=== PATIENT | female | born 1945 | race Caucasian/White ===

== ENCOUNTER 2020-07-08 07:55 | Outpatient (CLI) | payer MEDICARE, OTHER | END 2020-07-08 07:56 | disposition home or self-care (01) | LOC: BICMAMMO 07:55 | PROVIDERS: ATTEND Internal Medicine | DX: Z12.31 Encounter for screening mammogram for malignant neoplasm of breast (principal) | CPT/HCPCS: 77063; 77067 ==

== ENCOUNTER → 2020-12-06 | Day surgery (SDC) | payer MEDICARE, OTHER ==
[2020-12-03 14:30] VITALS: BMI 26.8
[~2020-12-06] MED LIST: Lidocaine 1% PF 5 ML VIAL ONE; PROPOFOL 200 MG/20 ML VIAL ONE
== END ==
LOC: SDC 10:38
PROVIDERS: ATTEND Internal Medicine Cardiovascular Disease
PROC: B246ZZ4 Ultrasonography of Right and Left Heart, Transesophageal (ICD-10-PCS; principal; 2020-12-06)
PROC: 5A2204Z Restoration of Cardiac Rhythm, Single (ICD-10-PCS; 2020-12-06)
DX: I48.3 Typical atrial flutter (principal); Q21.1 Atrial septal defect; I08.1 Rheumatic disorders of both mitral and tricuspid valves; I48.0 Paroxysmal atrial fibrillation; I10 Essential (primary) hypertension; Z79.01 Long term (current) use of anticoagulants; Z79.2 Long term (current) use of antibiotics; Z79.899 Other long term (current) drug therapy; Z91.013 Allergy to seafood
CPT/HCPCS: 92960; 93005; 93010; 93312; J2704

== ENCOUNTER 2020-12-14 15:41 | Outpatient (CLI) | payer MEDICARE, OTHER ==
[2020-12-14 17:00] LABS: Hemoglobin 12.5 g/dL (12.0-15.5); Mean Corpuscular HGB CONC 32.3 g/dL (32.0-36.0); Mean Corpuscular Hemoglobin 29.8 pg (27.0-33.0); Mean Corpuscular Volume 92.4 fl (81.6-98.3); Mean Platelet Volume 9.9 fl (7.4-10.4); Platelet Count 270 10x3/uL (150-450); RBC Distribution Width 13.5 % (11.5-14.5); Red Blood Cell (RBC) Count 4.19 10x6/uL (3.90-5.03); White Blood Cell (WBC) Count 6.2 10x3/uL (3.5-10.5)
[2020-12-14 17:16] LABS: Prothrombin Time 11.2 sec (9.5-12.1)
[2020-12-14 17:32] LABS: Anion Gap 13 mmol/L (10-20); BUN (Urea Nitrogen) 19 mg/dL (9.8-20.1); Calc. Creatinine Clearance 0 mL/min (70-130); Calcium 9.5 mg/dL (7.8-10.44); Carbon Dioxide 25 mmol/L (23-31); Chloride 109 mmol/L (98-107); Glucose 85 mg/dL (83-110); Potassium 4.6 mmol/L (3.5-5.1); Sodium 142 mmol/L (136-145)
[2020-12-15 07:50] LABS: SARS-CoV-2 PCR by NAA Not Detected (NotDetected)
== END 2020-12-14 15:42 | disposition home or self-care (01) ==
LOC: LABBT 15:41
PROVIDERS: ATTEND Internal Medicine Cardiovascular Disease
DX: Z01.812 Encounter for preprocedural laboratory examination (principal); Z20.822 Contact with and (suspected) exposure to COVID-19
CPT/HCPCS: 80048; 85027; 85610; U0003; U0005

== ENCOUNTER 2020-12-17 07:52 | Day surgery (SDC) | payer MEDICARE, OTHER ==
[2020-12-16 13:01] VITALS: BMI 28.5
[2020-12-17] MEDS ORDERED: Clindamycin/D5W 900 mg/50 ml Premix Bag ONE ×2 (10:11→10:20)
[2020-12-17] MEDS ORDERED: Heparin 10,000 UNITS/ 10 ML VIAL ONE (10:15)
[2020-12-17] MEDS ORDERED: SUGAMMADEX SODIUM 200 MG/2 ML VIAL ONE (10:20)
[2020-12-17] MEDS ORDERED: Fentanyl 100 MCG/2 ML VIAL ONE (10:20)
[2020-12-17] MEDS ORDERED: Famotidine/PF 20 mg/2ml Vial ONE (10:20)
[2020-12-17] MEDS ORDERED: Heparin 25,000 units/D5W 0 ML ONE (10:29)
[2020-12-17] MEDS ORDERED: Ondansetron PF 4 MG/2 ML Vial ONE (10:41)
[2020-12-17] MEDS ORDERED: Lidocaine 1% PF 5 ML VIAL ONE (10:41)
[2020-12-17] MEDS ORDERED: PROPOFOL 200 MG/20 ML VIAL ONE (10:41)
[2020-12-17] MEDS ORDERED: ePHEDrine 50 MG/ML VIAL ONE (10:41)
[2020-12-17] MEDS ORDERED: Metoclopramide HCl 10 MG/2 ML VIAL ONE (10:41)
[2020-12-17] MEDS ORDERED: Rocuronium Bromide 10 MG/ML (10ML VIAL) ONE (10:41)
[2020-12-17] MEDS ORDERED: PHENYLEPHRINE-NS 100 MCG/ML 10 ML SYRINGE ONE (10:41)
== END 2020-12-17 16:54 | disposition home or self-care (01) ==
LOC: SDC 07:52
PROVIDERS: ATTEND Internal Medicine Cardiovascular Disease
PROC: 02583ZZ Destruction of Conduction Mechanism, Percutaneous Approach (ICD-10-PCS; principal; 2020-12-17)
PROC: 02K83ZZ Map Conduction Mechanism, Percutaneous Approach (ICD-10-PCS; 2020-12-17)
DX: I48.3 Typical atrial flutter (principal); I48.0 Paroxysmal atrial fibrillation; I10 Essential (primary) hypertension; Z79.01 Long term (current) use of anticoagulants; Z79.2 Long term (current) use of antibiotics; Z79.899 Other long term (current) drug therapy; Z91.013 Allergy to seafood
CPT/HCPCS: 76942; 93005; 93613; 93653; C1731; C1894; C2630; J1644; J2405; J2704; J2765; J3010; J3490; S0028